=== PATIENT | female | born 1995 | race Caucasian/White ===

== ENCOUNTER 2016-10-04 17:00 | Emergency (ER) | payer OTHER ==
[~2016-10-04] VITALS: Wt 65.8 kg
[~2016-10-04 17:00] MED LIST: MACROBID100 M1 PO; MEDROL DOSEPAK4 MG PO; TAMIFLU45 MG PO; VICODIN 500 MG-1 TAB PO
[2016-10-04] MEDS ORDERED: PROAIR HFA8.5 GM INH (19:33)
[2016-10-04] MEDS ORDERED: MEDROL DOSEPAK4 MG PO (19:33)
== END 2016-10-04 20:29 | disposition home or self-care (01) ==
LOC: ED 17:00
DX: J20.9 Acute bronchitis, unspecified (principal); F17.200 Nicotine dependence, unspecified, uncomplicated; Z91.040 Latex allergy status

== ENCOUNTER 2017-07-16 10:17 | Emergency (ER) | payer OTHER ==
[~2017-07-16] VITALS: Ht 154.9 cm; Wt 56.7 kg
[~2017-07-16 10:17] MED LIST changes: +PROAIR HFA8.5 GM INH
[2017-07-16 10:55] LABS: BILIRUBIN NEGATIVE (NEGATIVE); BLOOD NEGATIVE (NEGATIVE); CLARITY CLOUDY (CLEAR); COLOR YELLOW (YELLOW); GLUCOSE NEGATIVE (NEGATIVE); KETONE TRACE (NEGATIVE); LEUKO ESTERASE TRACE (NEGATIVE); NITRITE POSITIVE (NEGATIVE); PH 5.5 (5.0-9.0); UROBILINOGEN 0.2 E.U./dl (0.2-1.0)
[2017-07-16 10:58] LABS: BASO % 0.4 % (0.0-1.0); EOS # 0.2 10*3/uL (0.0-0.4); EOS % 2.7 % (1.0-4.0); HEMATOCRIT 40.4 % (37.0-47.0); HEMOGLOBIN 13.4 g/dl (12.0-16.0); LYMPH # 1.3 10*3/uL (1.3-4.4); LYMPH % 17.6 % (27.0-41.0); MEAN CELL VOLUME 94.6 fl (81.0-99.0); MEAN CORPUSCULAR HGB 31.4 pg (27.0-31.0); MEAN CORPUSCULAR HGB CONC 33.2 g/dl (33.0-37.0); MEAN PLATELET VOLUME 11.3 fl (9.6-12.3); MONO # 0.5 10*3/uL (0.1-1.0); MONO % 6.4 % (3.0-9.0); NEUT # 5.3 10*3/uL (2.3-7.9); NEUT % 72.5 % (47.0-73.0); PLATELET COUNT AUTOMATED 194 10*3/uL (130-400); RED BLOOD COUNT 4.27 10*6/uL (4.10-5.10); RED CELL DISTRI WIDTH 15.5 % (0-14.5); WHITE BLOOD COUNT 7.3 10*3/uL (4.8-10.8)
[2017-07-16 11:10] LABS: BACTERIA 3+; RBC 0-2 rbc/hpf (0-2)
[2017-07-16 11:54] LABS: ALBUMIN 3.4 gm/dl (3.1-4.5); ALKALINE PHOSPHATASE 63 U/L (45-117); BUN 10 mg/dl (7-24); CHLORIDE 107 mmol/L (98-107); CREATININE 0.81 mg/dL (0.55-1.02); LIPASE 86 U/L (73-393); POTASSIUM 3.6 mmol/L (3.5-5.1); SGOT/AST 14 IU/L (3-35); SGPT/ALT 17 U/L (12-78); SODIUM 139 mmol/L (136-145); TOTAL PROTEIN 5.9 gm/dL (6.4-8.2)
[2017-07-16] MEDS ORDERED: SEPTDS PO (12:15)
[2017-07-16] MEDS ORDERED: ZOFRAN ODT4 MG SL (12:15)
== END 2017-07-16 12:20 | disposition home or self-care (01) ==
LOC: ED 10:17
PROVIDERS: Nurse Practitioner Family
DX: N39.0 Urinary tract infection, site not specified (principal); F17.200 Nicotine dependence, unspecified, uncomplicated; F10.10 Alcohol abuse, uncomplicated; Z91.040 Latex allergy status

== ENCOUNTER 2017-09-04 20:38 | Emergency (ER) | payer OTHER ==
[~2017-09-04] VITALS: Ht 154.9 cm; Wt 56.7 kg
[~2017-09-04 20:38] MED LIST changes: +SEPTDS PO; +ZOFRAN ODT4 MG SL
[2017-09-04] MEDS ORDERED: ZITHROMAX250 MG PO (21:51)
[2017-09-04] MEDS ORDERED: PROAIR HFA8.5 GM INH (21:51)
[2017-09-04] MEDS ORDERED: PREDNISONE20 M1 PO (21:51)
== END 2017-09-04 22:07 | disposition home or self-care (01) ==
LOC: ED 20:38
DX: J20.9 Acute bronchitis, unspecified (principal); F17.200 Nicotine dependence, unspecified, uncomplicated; Z79.899 Other long term (current) drug therapy; Z91.040 Latex allergy status

== ENCOUNTER 2018-03-31 10:16 | Emergency (ER) | payer OTHER ==
[~2018-03-31] VITALS: Ht 154.9 cm; Wt 59.0 kg
[~2018-03-31 10:16] MED LIST changes: +PREDNISONE20 M1 PO; +ZITHROMAX250 MG PO
[2018-03-31] MEDS ORDERED: AVPAK AZITHROM250 MG PO (10:36)
[2018-03-31] MEDS ORDERED: FLONASE ALLERG9.9 ML NAS (10:36)
[2018-03-31] MEDS ORDERED: ZYRTEC10 M3 PO (10:36)
== END 2018-03-31 10:39 | disposition home or self-care (01) ==
LOC: ED 10:16
DX: J06.9 Acute upper respiratory infection, unspecified (principal); Z91.040 Latex allergy status

== ENCOUNTER 2018-08-25 17:31 | Emergency (ER) | payer OTHER ==
[~2018-08-25] VITALS: Ht 154.9 cm; Wt 56.7 kg
[~2018-08-25 17:31] MED LIST changes: +AVPAK AZITHROM250 MG PO; +FLONASE ALLERG9.9 ML NAS; +ZYRTEC10 M3 PO
[2018-08-25 17:59] LABS: BASO # 0.1 10*3/uL (0.0-0.1); BASO % 0.6 % (0.0-1.0); EOS # 0.3 10*3/uL (0.0-0.4); HEMATOCRIT 39.3 % (37.0-47.0); HEMOGLOBIN 12.8 g/dl (12.0-16.0); LYMPH # 2.4 10*3/uL (1.3-4.4); LYMPH % 29.9 % (27.0-41.0); MEAN CELL VOLUME 95.2 fl (81.0-99.0); MEAN CORPUSCULAR HGB CONC 32.6 g/dl (33.0-37.0); MEAN PLATELET VOLUME 11.1 fl (9.6-12.3); MONO # 0.9 10*3/uL (0.1-1.0); MONO % 11.8 % (3.0-9.0); NEUT # 4.3 10*3/uL (2.3-7.9); NEUT % 53.3 % (47.0-73.0); PLATELET COUNT AUTOMATED 245 10*3/uL (130-400); RED BLOOD COUNT 4.13 10*6/uL (4.10-5.10); RED CELL DISTRI WIDTH 13.3 % (0-14.5)
[2018-08-25 18:17] LABS: ALBUMIN 3.4 gm/dl (3.1-4.5); ALKALINE PHOSPHATASE 74 U/L (45-117); BUN 10 mg/dl (7-24); CHLORIDE 110 mmol/L (98-107); POTASSIUM 3.7 mmol/L (3.5-5.1); SGOT/AST 14 IU/L (3-35); SGPT/ALT 23 U/L (12-78); SODIUM 142 mmol/L (136-145); TOTAL PROTEIN 6.7 gm/dL (6.4-8.2)
[2018-08-25 19:53] LABS: BILIRUBIN NEGATIVE (NEGATIVE); BLOOD 3+ (NEGATIVE); CLARITY SL CLOUDY (CLEAR); COLOR YELLOW (YELLOW); GLUCOSE NEGATIVE (NEGATIVE); KETONE NEGATIVE (NEGATIVE); LEUKO ESTERASE 2+ (NEGATIVE); NITRITE POSITIVE (NEGATIVE); SPECIFIC GRAVITY 1.015 (1.005-1.030); UROBILINOGEN 0.2 E.U./dl (0.2-1.0)
[2018-08-25 20:20] LABS: BACTERIA 3+; RBC 31-40 rbc/hpf (0-2); WBC 41-50 wbc/hpf (0-5)
[2018-08-25] MEDS ORDERED: MACROBID100 M1 PO (20:39)
== END 2018-08-25 20:50 | disposition home or self-care (01) ==
LOC: ED 17:31
PROVIDERS: Physician Assistant
DX: O03.4 Incomplete spontaneous abortion without complication (principal); R42 Dizziness and giddiness; R19.7 Diarrhea, unspecified; R68.83 Chills (without fever); Z91.040 Latex allergy status

== ENCOUNTER 2019-03-30 10:06 | Emergency (ER) | payer OTHER ==
[~2019-03-30] VITALS: Ht 154.9 cm; Wt 63.5 kg
[2019-03-30] MEDS ORDERED: PREDNISONE50 MG PO (10:32)
[2019-03-30] MEDS ORDERED: VIBRAMYCIN100 MG PO (10:32)
[2019-03-30] MEDS ORDERED: PROVENTIL HFA6.7 GM INH (10:32)
== END 2019-03-30 10:59 | disposition home or self-care (01) ==
LOC: ED 10:06
DX: J20.9 Acute bronchitis, unspecified (principal); F17.210 Nicotine dependence, cigarettes, uncomplicated; Z79.899 Other long term (current) drug therapy; Z91.040 Latex allergy status

== ENCOUNTER 2019-04-30 12:45 | Inpatient (IN) | payer OTHER ==
[~2019-04-30] VITALS: Ht 154.9 cm; Wt 62.2 kg
[2019-04-30 12:45] VITALS: BP 159/60
[~2019-04-30 12:45] MED LIST changes: +PREDNISONE50 MG PO; +PROVENTIL HFA6.7 GM INH; +VIBRAMYCIN100 MG PO
[2019-04-30 13:26] LABS: BASO % 0.3 % (0.0-1.0); EOS % 0.3 % (1.0-4.0); HEMATOCRIT 36.6 % (37.0-47.0); HEMOGLOBIN 12.2 g/dl (12.0-16.0); LYMPH # 0.9 10*3/uL (1.3-4.4); LYMPH % 6.9 % (27.0-41.0); MEAN CELL VOLUME 94.1 fl (81.0-99.0); MEAN CORPUSCULAR HGB 31.4 pg (27.0-31.0); MEAN CORPUSCULAR HGB CONC 33.3 g/dl (33.0-37.0); MONO # 1.2 10*3/uL (0.1-1.0); MONO % 8.9 % (3.0-9.0); NEUT # 11.1 10*3/uL (2.3-7.9); NEUT % 83.3 % (47.0-73.0); PLATELET COUNT AUTOMATED 193 10*3/uL (130-400); RED BLOOD COUNT 3.89 10*6/uL (4.10-5.10); RED CELL DISTRI WIDTH 14.1 % (0-14.5); WHITE BLOOD COUNT 13.3 10*3/uL (4.8-10.8)
[2019-04-30 13:37] LABS: ALBUMIN 3.5 gm/dl (3.1-4.5); ALKALINE PHOSPHATASE 69 U/L (45-117); BUN 6 mg/dl (7-24); CHLORIDE 107 mmol/L (98-107); CREATININE 1.05 mg/dL (0.55-1.02); LIPASE 77 U/L (73-393); POTASSIUM 3.4 mmol/L (3.5-5.1); SGOT/AST 8 IU/L (3-35); SGPT/ALT 12 U/L (12-78); SODIUM 135 mmol/L (136-145); TOTAL PROTEIN 6.7 gm/dL (6.4-8.2)
[2019-04-30 13:41] LABS: BILIRUBIN NEGATIVE (NEGATIVE); BLOOD 1+ (NEGATIVE); CLARITY CLOUDY (CLEAR); COLOR YELLOW (YELLOW); GLUCOSE NEGATIVE (NEGATIVE); KETONE NEGATIVE (NEGATIVE); LEUKO ESTERASE 2+ (NEGATIVE); NITRITE POSITIVE (NEGATIVE); PH 7.5 (5.0-9.0); SPECIFIC GRAVITY 1.015 (1.005-1.030); UROBILINOGEN 0.2 E.U./dl (0.2-1.0)
[2019-04-30 13:42] LABS: BETA-HCG, QUANT < 1.0 mIU/mL (1-3)
[2019-04-30 13:49] LABS: BACTERIA 3+; MUCOUS 1+; WBC TNTC wbc/hpf (0-5)
[2019-04-30 13:50] LABS: RBC 31-40 rbc/hpf (0-2)
[2019-04-30 17:07] VITALS: BP 107/57
[2019-04-30 17:56] VITALS: BP 109/61
--- NOTE | 2019-04-30 17:56 | NUR ---
A 24, admitted to 5E, under the services of TSERING Juarez DO with a diagnosis of PYLENEPOHRITIS. Chief complaint is RIGHT ABD/R FLANK PAIN. Patient arrived via BED from ER. Monitor applied. Initial assessment completed. Vital signs taken and recorded. TSERING JUAREZ DO notified of admission to the unit. Orders received. See assessment for past medical history, medications and allergies. Patient and/or family oriented to unit. [facility] visitation policy reviewed. Clothing/patient valuable form completed. MATHEW DOMINGUEZ
--- NOTE | 2019-04-30 18:08 | NUR ---
TYLENOL 650 MG GIVEN FOR TEMP 101.3.
--- NOTE | 2019-04-30 18:16 | NUR ---
PT TAKES NO HOME MEDS.
[2019-04-30 20:00] VITALS: BP 102/54
[2019-05-01] VITALS: BP 102/56
--- NOTE | 2019-05-01 01:26 | NUR ---
PATIENT SLEEPING. NO S/S OF DISTRESS NOTED. CALL LIGHT IN REACH
[2019-05-01 06:24] LABS: HEMOGLOBIN 11.9 g/dl (12.0-16.0); MEAN CORPUSCULAR HGB 31.7 pg (27.0-31.0); MEAN CORPUSCULAR HGB CONC 33.1 g/dl (33.0-37.0); MEAN PLATELET VOLUME 11.4 fl (9.6-12.3); PLATELET COUNT AUTOMATED 176 10*3/uL (130-400); RED BLOOD COUNT 3.75 10*6/uL (4.10-5.10); RED CELL DISTRI WIDTH 14.6 % (0-14.5); WHITE BLOOD COUNT 17.2 10*3/uL (4.8-10.8)
[2019-05-01 06:56] LABS: BUN 7 mg/dl (7-24); CHLORIDE 108 mmol/L (98-107); CREATININE 0.99 mg/dL (0.55-1.02); PLATELET SUFFICIENCY NORMAL (NORMAL); SODIUM 138 mmol/L (136-145); TOTAL CELLS COUNTED 100 #CELLS
[2019-05-01 06:59] LABS: ACT PARTIAL THROMBO TIME 31.6 SECONDS (20.0-32.1); INTERNATIONAL NORM RATIO 1.1 (2.0-3.5)
[2019-05-01 07:02] LABS: THYROID STIM HORMONE (HS) 0.239 uIU/ml (0.358-4.75)
[2019-05-01 08:00] VITALS: BP 100/54
--- NOTE | 2019-05-01 09:00 | NUR ---
UPON ENTERING ROOM, PT IS AWAKE, ALERT AND ORIENTED. SPEECH IS CLEAR AND APPROPRIATE. NO STATED COMPLAINTS. DENIES PAIN AT THIS TIME. RESPIRATIONS ARE EASY AND REGULAR. NO SOB NOTED. PT STATES SHE WOULD LIKE TO SHOWER. DR. PRASAD NOTIFIED OF PT WANTING TO TAKE MONITOR OFF. ORDERS OBTAINED. BED IN LOWEST LOCKED POSITION AND CALL LIGHT WITHIN REACH. WILL CONTINUE TO MONITOR.
[2019-05-01 12:00] VITALS: BP 102/56
[2019-05-01 16:00] VITALS: BP 104/46
[2019-05-01 20:00] VITALS: BP 96/46
[2019-05-02] VITALS: BP 137/86
--- NOTE | 2019-05-02 03:42 | NUR ---
24 HR chart check completed.
--- NOTE | 2019-05-02 06:40 | NUR ---
MEDICATED WITH PRN TYLENOL FOR C/O FLANK PAIN. WILL MONITOR
[2019-05-02 06:41] LABS: HEMATOCRIT 34.3 % (37.0-47.0); MEAN CELL VOLUME 97.4 fl (81.0-99.0); MEAN CORPUSCULAR HGB 31.3 pg (27.0-31.0); MEAN CORPUSCULAR HGB CONC 32.1 g/dl (33.0-37.0); MEAN PLATELET VOLUME 11.3 fl (9.6-12.3); PLATELET COUNT AUTOMATED 171 10*3/uL (130-400); RED BLOOD COUNT 3.52 10*6/uL (4.10-5.10); RED CELL DISTRI WIDTH 14.6 % (0-14.5); WHITE BLOOD COUNT 15.3 10*3/uL (4.8-10.8)
[2019-05-02 07:23] LABS: CHLORIDE 108 mmol/L (98-107); POTASSIUM 3.6 mmol/L (3.5-5.1); SODIUM 138 mmol/L (136-145)
[2019-05-02 07:27] LABS: BUN 8 mg/dl (7-24); CREATININE 0.84 mg/dL (0.55-1.02); PLATELET SUFFICIENCY NORMAL (NORMAL); TOTAL CELLS COUNTED 100 #CELLS
[2019-05-02 08:00] VITALS: BP 106/68
--- NOTE | 2019-05-02 09:00 | NUR ---
News Director in to see patient. She is in the shower at this time. Will follow up at a later time.
--- NOTE | 2019-05-02 09:00 | NUR ---
PT REQUESTED AND RECIEVED A PRN NORCO FOR PAIN RATED AT A 7. PATIENT IS AWAKE, ALERT AND ORIENTED. NO S/S DISTRESS OR SOB NOTED ON ROOM AIR. RESPIRATIONS ARE EASY AND REGULAR.
[2019-05-02 12:00] VITALS: BP 110/70
--- NOTE | 2019-05-02 12:00 | NUR ---
Plastic Cutter in to talk to patient. Patient states lives at home with her son. There are 0 steps in the home. Physician: no family physician [facility]acy: [facility] health services: none Patient's level of ADLs: INDEPENDENT Patient has working utilities: yes DME: none Follow-up physician's appointment after d/c: will be made by the hospitalist nurse director upon discharge Does patient want to access PORTAL?: no Discharge plan discussed with patient. She lives at home with her son. She is independent in her ADLs and ambulation. Discussed home health care services and she denies any home needs at this time. She states she doesn't feel well enough to be discharged today and would like to stay one more day. Discussed elevation temperature last night. When medically stable she will be discharged to home. Family at bedside who will provide transportation on discharge. MARY TREJO
[2019-05-02 16:00] VITALS: BP 106/49
[2019-05-02 20:00] VITALS: BP 101/52
--- NOTE | 2019-05-03 01:15 | NUR ---
PT. C/O BILATERAL FLANK PAIN RATING IT A 10/10. MEDICATED WITH NORCO. ALSO WRAPPED PATIENT'S HEP LOCK AT THIS TIME SO THAT SHE COULD TAKE A SHOWER. CALLED FOR PYRIDIUM FOR PATIENT.
--- NOTE | 2019-05-03 04:00 | NUR ---
RESTING IN BED WITH EYES CLOSED. PAIN MEDICATION GIVEN EARLIER APPARENTLY EFFECTIVE.
--- NOTE | 2019-05-03 06:12 | NUR ---
MEDICATED WITH TYLENOL FOR C/O PAIN.
[2019-05-03 06:22] LABS: HEMATOCRIT 32.5 % (37.0-47.0); HEMOGLOBIN 10.5 g/dl (12.0-16.0); MEAN CELL VOLUME 98.2 fl (81.0-99.0); MEAN CORPUSCULAR HGB 31.7 pg (27.0-31.0); MEAN CORPUSCULAR HGB CONC 32.3 g/dl (33.0-37.0); MEAN PLATELET VOLUME 11.2 fl (9.6-12.3); PLATELET COUNT AUTOMATED 174 10*3/uL (130-400); RED BLOOD COUNT 3.31 10*6/uL (4.10-5.10); RED CELL DISTRI WIDTH 14.5 % (0-14.5); WHITE BLOOD COUNT 11.7 10*3/uL (4.8-10.8)
[2019-05-03 06:51] LABS: PLATELET SUFFICIENCY NORMAL (NORMAL); TOTAL CELLS COUNTED 100 #CELLS
[2019-05-03 06:52] LABS: TARGET CELLS FEW
[2019-05-03 08:00] VITALS: BP 100/58
--- NOTE | 2019-05-03 08:05 | NUR ---
PT SITTING UP IN BED. NO SOB NOTED. RESP-EASY AND REGULAR. NO C/O AT THIS TIME. CALL LIGHT IN REACH. SEE SHIFT ASSESSMENT.
--- NOTE | 2019-05-03 08:05 | NUR ---
PT AMBULATORY IN ROOM. NO C/O AT THIS TIME. PT ANXIOUS TO GO HOME. CALL LIGHT IN REACH. SEE SHIFT ASSESSMENT.
[2019-05-03] MEDS ORDERED: AMINOPHYLLIN200 MG PO (10:21)
[2019-05-03] MEDS ORDERED: PYRIDIUM100 MG PO (10:42)
--- NOTE | 2019-05-03 11:06 | NUR ---
PT AMBULATORY OFF THE FLOOR FOR DISCHARGE. Discharge instructions reviewed with patient/family. Patient receptive and verbalizes understanding. Follow-up care arranged. Written instructions given to patient/family. HEPLOCK REMOVED 2X2 APPLIED. CLINT FRANCES
== END 2019-05-03 11:06 | disposition home or self-care (01) | DRG 720 ==
LOC: ED 12:45 → EDHOLD 16:43 → 5E 16:43
PROVIDERS: Emergency Medicine; Internal Medicine; Registered Nurse; ADMIT Internal Medicine
DX: A41.50 Gram-negative sepsis, unspecified (principal); N12 Tubulo-interstitial nephritis, not specified as acute or chronic; B96.20 Unspecified Escherichia coli [E. coli] as the cause of diseases classified elsewhere; E87.6 Hypokalemia; F17.210 Nicotine dependence, cigarettes, uncomplicated; Z71.6 Tobacco abuse counseling; Z91.040 Latex allergy status; Z87.440 Personal history of urinary (tract) infections

== ENCOUNTER 2019-06-19 16:55 | Inpatient (IN) | payer OTHER ==
[~2019-06-19] VITALS: Ht 154.9 cm; Wt 59.0 kg
[~2019-06-19 16:55] MED LIST changes: +AMINOPHYLLIN200 MG PO; +PYRIDIUM100 MG PO
[2019-06-19 17:15] LABS: BILIRUBIN NEGATIVE (NEGATIVE); BLOOD 3+ (NEGATIVE); CLARITY SL CLOUDY (CLEAR); COLOR YELLOW (YELLOW); GLUCOSE NEGATIVE (NEGATIVE); KETONE NEGATIVE (NEGATIVE); LEUKO ESTERASE 3+ (NEGATIVE); NITRITE POSITIVE (NEGATIVE); SPECIFIC GRAVITY 1.015 (1.005-1.030); UROBILINOGEN 0.2 E.U./dl (0.2-1.0)
[2019-06-19 17:34] LABS: BASO % 0.3 % (0.0-1.0); EOS # 0.2 10*3/uL (0.0-0.4); EOS % 1.3 % (1.0-4.0); HEMATOCRIT 39.3 % (37.0-47.0); HEMOGLOBIN 12.7 g/dl (12.0-16.0); LYMPH # 2.5 10*3/uL (1.3-4.4); LYMPH % 17.1 % (27.0-41.0); MEAN CELL VOLUME 95.2 fl (81.0-99.0); MEAN CORPUSCULAR HGB 30.8 pg (27.0-31.0); MEAN CORPUSCULAR HGB CONC 32.3 g/dl (33.0-37.0); MEAN PLATELET VOLUME 10.1 fl (9.6-12.3); MONO # 1.3 10*3/uL (0.1-1.0); MONO % 9.2 % (3.0-9.0); NEUT # 10.3 10*3/uL (2.3-7.9); NEUT % 71.8 % (47.0-73.0); PLATELET COUNT AUTOMATED 266 10*3/uL (130-400); RED BLOOD COUNT 4.13 10*6/uL (4.10-5.10); RED CELL DISTRI WIDTH 14.6 % (0-14.5); WHITE BLOOD COUNT 14.3 10*3/uL (4.8-10.8)
[2019-06-19 17:38] LABS: BACTERIA 4+
[2019-06-19 17:39] LABS: EPITHELIAL CELLS 16-20; RBC 21-30 rbc/hpf (0-2); WBC 51-100 wbc/hpf (0-5)
[2019-06-19 17:52] LABS: ALBUMIN 3.6 gm/dl (3.1-4.5); ALKALINE PHOSPHATASE 82 U/L (45-117); BUN 7 mg/dl (7-24); CHLORIDE 108 mmol/L (98-107); CREATININE 1.06 mg/dL (0.55-1.02); POTASSIUM 3.6 mmol/L (3.5-5.1); SGOT/AST 19 IU/L (3-35); SGPT/ALT 18 U/L (12-78); SODIUM 139 mmol/L (136-145); TOTAL PROTEIN 6.9 gm/dL (6.4-8.2)
[2019-06-19 18:00] VITALS: BP 113/64
--- NOTE | 2019-06-19 18:18 | NUR ---
PT RESTING IN BED WITH EYES CLOSED, NO DISTRESS NOTED AT THIS TIME, TORADOL EFFECTIVE FOR PAIN.
[2019-06-19 19:05] VITALS: BP 104/57
--- NOTE | 2019-06-19 19:05 | NUR ---
NURSE TO NURSE REPORT GIVEN TO THIS RN.PT AWAITING BED FOR TRANSFER TO UNIT.
--- NOTE | 2019-06-19 19:23 | NUR ---
PT PROVIDED BOXED LUNCH.
[2019-06-19 19:30] VITALS: BP 110/76
--- NOTE | 2019-06-19 19:30 | NUR ---
Time: 1929 A 24 year old FEMALE admitted to 5E under services of TSERING JUAREZ DO. Pt. arrived via bed from ER. Chief complaint: R FLANK PAIN DIZZY BODY ACHES CHILLS . IRENE JUDGE
[2019-06-19 20:00] VITALS: BP 110/76
--- NOTE | 2019-06-19 20:31 | NUR ---
PATIENT STATES SHE MIGHT WANT A FLU SHOT AND WANTS TO THINK ABOUT IT.
--- NOTE | 2019-06-19 22:21 | NUR ---
PATIENT SLEEPING ON BACK. NONLABORED RESPIRATIONS ON ROOM AIR. NO OVERT DISTRESS. IVF INFUSING PER ORDERS. IV SITE ASYMPTOMATIC. BED IN LOWEST LOCKED POS, CALL LIGHT WITHIN REACH, SIDE RAILS X1
[2019-06-20] VITALS (7 sets, daily range): BP systolic 99–139; BP diastolic 61–91
--- NOTE | 2019-06-20 02:37 | NUR ---
MORPHINE PROVIDED PER PT REQUEST FOR PAIN TO RT FLANK. CALL LIGHT WITHIN REACH
[2019-06-20 06:33] LABS: BASO # 0.1 10*3/uL (0.0-0.1); BASO % 0.4 % (0.0-1.0); EOS # 0.1 10*3/uL (0.0-0.4); EOS % 1.2 % (1.0-4.0); HEMATOCRIT 32.4 % (37.0-47.0); HEMOGLOBIN 10.4 g/dl (12.0-16.0); LYMPH # 2.3 10*3/uL (1.3-4.4); MEAN CELL VOLUME 96.4 fl (81.0-99.0); MEAN CORPUSCULAR HGB CONC 32.1 g/dl (33.0-37.0); MEAN PLATELET VOLUME 11.2 fl (9.6-12.3); MONO # 1.3 10*3/uL (0.1-1.0); NEUT # 7.8 10*3/uL (2.3-7.9); PLATELET COUNT AUTOMATED 231 10*3/uL (130-400); RED BLOOD COUNT 3.36 10*6/uL (4.10-5.10); RED CELL DISTRI WIDTH 14.6 % (0-14.5); WHITE BLOOD COUNT 11.7 10*3/uL (4.8-10.8)
[2019-06-20 06:46] LABS: ALBUMIN 2.6 gm/dl (3.1-4.5); BUN 5 mg/dl (7-24); CHLORIDE 114 mmol/L (98-107); CHOLESTEROL 94 mg/dL (<200); CREATININE 0.85 mg/dL (0.55-1.02); PHOSPHOROUS 2.4 mg/dL (2.5-4.9); POTASSIUM 3.9 mmol/L (3.5-5.1); SGOT/AST 13 IU/L (3-35); SGPT/ALT 16 U/L (12-78); SODIUM 143 mmol/L (136-145); TOTAL PROTEIN 5.4 gm/dL (6.4-8.2); TRIGLYCERIDES 84 mg/dl (<150); VLDL CHOLESTEROL 17 mg/dL (6-40)
[2019-06-20 06:48] LABS: ALKALINE PHOSPHATASE 64 U/L (45-117); HDL CHOLESTEROL 36 mg/dl (40-60); LDL CHOLESTEROL 41 mg/dL (9-159)
[2019-06-20 07:26] LABS: VITAMIN D, 25-HYDROXY 24.8 ng/mL (30-100)
--- NOTE | 2019-06-20 07:56 | NUR ---
VITAL SIGNS STABLE. PATIENT IS A&Ox3. OLIVER. THE PATIENT IS RESTING IN HER BED AT THIS TIME. SHE IS PLEASANT AND COOPERATIVE. LUNGS ARE CLEAR THROUGHOUT. HEART SOUNDS ARE NORMAL. ABDOMEN IS SOFT, NON TENDER AND NON DISTENDED. ACTIVE BOWEL SOUNDS X4. SKIN IS PINK, WARM AND DRY. INTACT. IV SITE IS INTACT. NO SIGNS OF INFECTION. CAPILLARY REFILL IS LESS THAN 3 SECONDS. SHE HAS NO COMPLAINTS OF PAIN AT THIS TIME. WILL CONTINUE TO ASSESS. LEILA BALDERAS
--- NOTE | 2019-06-20 09:00 | NUR ---
PATIENT STATES THAT SHE IS EXPERIENCING RIGHT SIDED FLANK PAIN AND BACK PAIN RATES THE PAIN A 4/10. SHE WAS PROVIDED WITH
--- NOTE | 2019-06-20 09:20 | NUR ---
PATIENT PROVIDED WITH NORCO 5/325 1 TAB PO DUE TO C/O RIGHT FLANK PAIN AND BACK PAIN THAT SHE RATES A 4/10. CALL LIGHT WITHIN REACH. WILL CONTINUE TO MONITOR PATIENT. LEILA BALDERAS
--- NOTE | 2019-06-20 10:22 | NUR ---
PATIENT STATES THAT "THIS BED IS UNCOMFORTABLE". SHE HAS BEEN ALTERNATING FROM THE BED TO THE CHAIR IN HER ROOM AN ATTEMPT TO GET COMFORTABLE. AN ATTEMPT TO GET A NEW BED HAS BEEN MADE BUT WAS INFROMED THAT THE SETTINGS CAN BE CHANGED TO DIFFERENT LEVELS OF FIRMNESS. THE SETTINGS HAVE BEEN ALTERED AND SHE IS BACK IN BED STATING THAT "THIS IS BETTER FOR NOW". CALL LIGHT WITHIN REACH. WILL CONTINUE TO ASSESS. SHANIQUA LEW SPYOJANACC
--- NOTE | 2019-06-20 10:38 | NUR ---
PATIENT IS SLEEPING AT THIS TIME ON HER BACK. EASY, NON LABORED RESPIRATIONS. SHE IS EASILY AROUSABLE. STATES THAT THE MEDICATION HAS BEEN EFFECTIVE FOR HER FLANK PAIN BUT STILL COMPLAINS OF A MILD BACK ACHE. HER BED FIRMNESS HAS BEEN CHANGED TO SEE IF THAT WILL HELP WITH HER BACK. WILL CONTINUE TO MONITOR. SHANIQUA LEW SPYOJANACC
--- NOTE | 2019-06-20 10:38 | NUR ---
PATIENT REASSESSED. SHE`
--- NOTE | 2019-06-20 11:33 | NUR ---
PATIENT IS AWAKE AND RESTING IN HER BED WITH NO COMPLAINTS AT THIS TIME. LUNCH HAS BEEN ORDERED. SHANIQUA BALDERAS.
--- NOTE | 2019-06-20 14:32 | NUR ---
Patient medicated with PRN norco for flank pain rated 5-6/10. Patient appears restless at this time. Will continue to monitor.
--- NOTE | 2019-06-20 14:52 | NUR ---
Impregnator And Drier in to talk to patient. Patient states lives at HOME with ALONE. There are NO steps in the home. Physician: NONE AT THIS TIME, HAS LIST AT BEDSIDE Pharmacy: [facility]: NONE Patient's level of ADLs: INDEPENDENT Patient has working utilities: YES DME: NONE Follow-up physician's appointment after d/c: WILL BE MADE BY HOSPITALIST NURSE DIRECTOR ON DISCHARGE Does patient want to access PORTAL?: NO Discharge plan PT LIVES AT HOME ALONE AND IS INDEPENDENT IN HER CARE. DENIES SHE WILL HAVE ANY NEEDS ON DISCHARGE. PLANS TO RETURN HOME. WILL HAVE A RIDE HOME PER PT. WILL CONTINUE TO FOLLOW.. KOREY CRUM
--- NOTE | 2019-06-20 19:38 | NUR ---
MEDICATED WITH PRN NORCO FOR C/O FLANK PAIN RATED 7/10 ON A 0/10 PAIN SCALE. WILL MONITOR
[2019-06-21] VITALS: BP 106/68
--- NOTE | 2019-06-21 00:40 | NUR ---
MEDICATED WITH PRN NORCO FOR C/O FLANK PAIN RATED 7/10 ON A 0/10 PAIN SCALE
--- NOTE | 2019-06-21 01:19 | NUR ---
24 HR chart check completed.
--- NOTE | 2019-06-21 02:16 | NUR ---
MEDICATION EFFECTIVE PER PATIENT
--- NOTE | 2019-06-21 06:04 | NUR ---
MEDICATED WITH PRN NORCO FOR C/O FLANK PAIN RATED 7/10 ON A 0/10 PAIN SCALE. WILL MONITOR
[2019-06-21 06:32] LABS: BASO % 0.4 % (0.0-1.0); EOS # 0.3 10*3/uL (0.0-0.4); EOS % 3.6 % (1.0-4.0); HEMATOCRIT 32.8 % (37.0-47.0); HEMOGLOBIN 10.5 g/dl (12.0-16.0); LYMPH # 2.4 10*3/uL (1.3-4.4); LYMPH % 25.8 % (27.0-41.0); MEAN CELL VOLUME 96.2 fl (81.0-99.0); MEAN CORPUSCULAR HGB 30.8 pg (27.0-31.0); MEAN PLATELET VOLUME 11.4 fl (9.6-12.3); MONO # 1.3 10*3/uL (0.1-1.0); MONO % 13.9 % (3.0-9.0); NEUT # 5.1 10*3/uL (2.3-7.9); NEUT % 55.4 % (47.0-73.0); PLATELET COUNT AUTOMATED 217 10*3/uL (130-400); RED BLOOD COUNT 3.41 10*6/uL (4.10-5.10); RED CELL DISTRI WIDTH 14.6 % (0-14.5); WHITE BLOOD COUNT 9.1 10*3/uL (4.8-10.8)
[2019-06-21 06:51] LABS: CHLORIDE 110 mmol/L (98-107); POTASSIUM 4.1 mmol/L (3.5-5.1); SODIUM 141 mmol/L (136-145)
[2019-06-21 06:55] LABS: BUN 7 mg/dl (7-24); CREATININE 0.81 mg/dL (0.55-1.02)
[2019-06-21 08:00] VITALS: BP 108/57
--- NOTE | 2019-06-21 11:13 | NUR ---
PT CONTINUES TO DENY SHE WILL GO HOME WITH NO NEEDS ON DISCHARGE. WILL CONTINUE TO FOLLOW.
[2019-06-21 12:00] VITALS: BP 108/57
[2019-06-21] MEDS ORDERED: LEVAQUIN750 M1 PO (13:31)
[2019-06-21] MEDS ORDERED: VITAMIN D-32000 UNI1 PO (13:31)
--- NOTE | 2019-06-21 14:20 | NUR ---
Was called to patients room for c/o "a reaction to the injection." Upon entering the room room patient was crying, moaning, kicking off the blankets and had c/o abdominal cramping and sweating. Patients skin was dry and temp WNL. Assessment of injection showed no signs of irritation. Vitals and blood sugar was taken. Patient stated to her mother (at bedside) "see Mom, I told you I wasn't ready to go home." Mother then agreed with patient. I reassured them that vitals and blood sugar were WNL and I would notify physician.
--- NOTE | 2019-06-21 14:30 | NUR ---
Notified Dr. Sparks of patients new c/o. Physician to follow up at bedside.
--- NOTE | 2019-06-21 15:45 | NUR ---
Patient stated that she wanted to be discharged. She said there was alot going on with her son.
[2019-06-21 16:00] VITALS: BP 105/69
--- NOTE | 2019-06-21 16:15 | NUR ---
Face to face encounter with Dr. Sparks and notified him that patient decided she wanted to go home.
--- NOTE | 2019-06-21 16:45 | NUR ---
Discharge instructions reviewed with patient/family. Patient receptive and verbalizes understanding. Follow-up care arranged. Written instructions given to patient/family. Patient was educated on follow up appointments and new medications. She ambulated from unit with all personal belongings accounted for. HARJEET MCCALLUM
== END 2019-06-21 18:17 | disposition home or self-care (01) | DRG 720 ==
LOC: ED 16:55 → 5E 18:24 → EDHOLD 18:24 → 5E 19:16
PROVIDERS: Internal Medicine; Physician Assistant; ADMIT Internal Medicine
DX: A41.9 Sepsis, unspecified organism (principal); N12 Tubulo-interstitial nephritis, not specified as acute or chronic; E87.6 Hypokalemia; F12.90 Cannabis use, unspecified, uncomplicated; D64.9 Anemia, unspecified; Z20.2 Contact with and (suspected) exposure to infections with a predominantly sexual mode of transmission; F17.210 Nicotine dependence, cigarettes, uncomplicated; E83.39 Other disorders of phosphorus metabolism; Z71.6 Tobacco abuse counseling; Z91.040 Latex allergy status; Z87.440 Personal history of urinary (tract) infections

== ENCOUNTER 2024-03-14 12:46 | Emergency (ER) | payer OTHER ==
[~2024-03-14] VITALS: Ht 165.1 cm; Wt 90.7 kg
[~2024-03-14 12:46] MED LIST changes: +AMOX-CLAV 875-1 EACH PO; +LEVAQUIN750 M1 PO; +NICODERM CQ1 EAC2 TD; +VITAMIN D-32000 UNI1 PO
[2024-03-14] MEDS ORDERED: SODIUM CHLORIDE 0.9% 1,000 ML IV ONE (13:20)
[2024-03-14] MEDS ORDERED: Ondansetron Hydrochloride 4 MG/2 ML VIAL IV ONE (13:20)
[2024-03-14 13:34] LABS: BASO # 0.1 10*3/uL (0.0-0.1); BASO % 0.4 % (0.0-1.0); EOS # 0.3 10*3/uL (0.0-0.4); EOS % 1.5 % (1.0-4.0); HEMATOCRIT 40.7 % (37.0-47.0); LYMPH # 1.4 10*3/uL (1.3-4.4); LYMPH % 7.3 % (27.0-41.0); MEAN CELL VOLUME 91.3 fl (81.0-99.0); MEAN CORPUSCULAR HGB 29.8 pg (27.0-31.0); MEAN CORPUSCULAR HGB CONC 32.7 g/dl (33.0-37.0); MEAN PLATELET VOLUME 10.3 fl (9.6-12.3); MONO % 4.9 % (3.0-9.0); NEUT # 16.8 10*3/uL (2.3-7.9); NEUT % 85.5 % (47.0-73.0); PLATELET COUNT AUTOMATED 305 10*3/uL (130-400); RED BLOOD COUNT 4.46 10*6/uL (4.10-5.10); RED CELL DISTRI WIDTH 14.9 % (0-14.5); WHITE BLOOD COUNT 19.7 10*3/uL (4.8-10.8)
[2024-03-14 14:00] LABS: ALKALINE PHOSPHATASE 107 U/L (46-116); BUN 12 mg/dl (9-23); CHLORIDE 107 mmol/L (98-107); LIPASE 28 U/L (12-53); POTASSIUM 3.7 mmol/L (3.4-5.1); SGPT/ALT 15 U/L (5-49); TOTAL PROTEIN 7.2 gm/dL (6.0-8.0)
[2024-03-14] MEDS ORDERED: ERYTHROMYCIN 1 GM TUBE OPH ONE (16:00)
[2024-03-14] MEDS ORDERED: Ondansetron4 MG PO (16:03)
== END 2024-03-14 16:18 | disposition home or self-care (01) ==
LOC: ED 12:46
PROVIDERS: Internal Medicine
DX: B34.9 Viral infection, unspecified (principal); Z20.822 Contact with and (suspected) exposure to COVID-19; H00.013 Hordeolum externum right eye, unspecified eyelid; D72.829 Elevated white blood cell count, unspecified; R11.2 Nausea with vomiting, unspecified; R19.7 Diarrhea, unspecified; M10.9 Gout, unspecified; F12.90 Cannabis use, unspecified, uncomplicated; F17.200 Nicotine dependence, unspecified, uncomplicated; Z91.040 Latex allergy status; Z98.890 Other specified postprocedural states